=== PATIENT | male | born 1970 | race African-American/Black ===

== ENCOUNTER 2016-08-24 12:00 | Emergency (ER) | payer MEDICAID ==
[~2016-08-24] VITALS: Ht 170.2 cm; Wt 86.2 kg
[2016-08-24 12:07] VITALS: BP 123/78
== END 2016-08-24 12:54 | disposition home or self-care (01) ==
LOC: ER 12:01
DX: J06.9 Acute upper respiratory infection, unspecified (principal); J02.9 Acute pharyngitis, unspecified; F17.210 Nicotine dependence, cigarettes, uncomplicated